=== PATIENT | female | born 1980 | race Hispanic/Latino ===

== ENCOUNTER 2016-11-29 00:18 | Emergency (ER) | payer OTHER ==
[~2016-11-29] VITALS: Ht 152.4 cm; Wt 59.1 kg
[2016-11-29 01:51] LABS: ADD MIUA? NO; BILIRUBIN NEGATIVE; BLOOD NEGATIVE; COLOR YELLOW ((YELLOW)); GLUCOSE (STRIP) NEGATIVE; KETONES TRACE; LEUKOCYTES NEGATIVE; NITRITE NEGATIVE; PH, URINE 6.5 (5-8); PROTEIN (STRIP) TRACE; SPECIFIC GRAVITY 1.031 (1.000-1.030); UCUL ADDED? NO
[2016-11-29] MEDS ORDERED: FLEXERIL10 MG PO (02:30)
[2016-11-29] MEDS ORDERED: PERCOCET 5/31 TABLET PO (02:30)
[2016-11-29] MEDS ORDERED: MEDROL DOSEPAK4 MG PO (02:30)
[2016-11-29 02:43] VITALS: BP 97/66
== END 2016-11-29 02:50 | disposition home or self-care (01) ==
LOC: RME 00:18 → EME 00:18 → RME 02:50
PROVIDERS: Physician Assistant
DX: M54.42 Lumbago with sciatica, left side (principal); J45.909 Unspecified asthma, uncomplicated; L98.9 Disorder of the skin and subcutaneous tissue, unspecified
CPT/HCPCS: 73502; 81003; 99281; 99284

== ENCOUNTER 2017-01-16 03:21 | Emergency (ER) | payer OTHER ==
[~2017-01-16] VITALS: Ht 165.1 cm; Wt 56.5 kg
[~2017-01-16 03:21] MED LIST: FLEXERIL10 MG PO; MEDROL DOSEPAK4 MG PO; PERCOCET 5/31 TABLET PO
[2017-01-16] MEDS ORDERED: PREDNISONE20 MG PO (04:33)
[2017-01-16 04:45] VITALS: BP 100/71
== END 2017-01-16 04:45 | disposition home or self-care (01) ==
LOC: EME 03:21
DX: J20.9 Acute bronchitis, unspecified (principal); J45.901 Unspecified asthma with (acute) exacerbation
CPT/HCPCS: 71020; 94640; 99281; 99284; J7512

== ENCOUNTER 2017-03-15 07:48 | Emergency (ER) | payer OTHER ==
[~2017-03-15] VITALS: Ht 152.4 cm; Wt 58.2 kg
[~2017-03-15 07:48] MED LIST changes: +PREDNISONE20 MG PO
[2017-03-15] MEDS ORDERED: TESSALON PERLE100 MG PO (10:00)
[2017-03-15 10:33] VITALS: BP 116/86
== END 2017-03-15 10:34 | disposition home or self-care (01) ==
LOC: EME 07:48
DX: J45.909 Unspecified asthma, uncomplicated (principal); R06.02 Shortness of breath; R05 Cough
CPT/HCPCS: 71020; 99281; 99284

== ENCOUNTER 2017-07-27 21:19 | Emergency (ER) | payer OTHER ==
[~2017-07-27] VITALS: Ht 152.4 cm; Wt 60.1 kg
[~2017-07-27 21:19] MED LIST changes: +TESSALON PERLE100 MG PO
[2017-07-27 22:36] LABS: HEMATOCRIT 40.9 % (36.0-46.0); MCH 27.1 PG (29.0-34.0); MCHC 32.8 G/DL (30.0-36.0); MCV 82.8 FL (83-99); PLATELET COUNT 387 K/uL (156-360); RBC DIS.WIDTH-CV 13.1 % (11.8-14.6); RBC DIS.WIDTH-SD 39.3 % (39-53); RED BLOOD COUNT 4.94 M/uL (3.80-5.20); WHITE BLOOD COUNT 9.5 K/uL (4.1-10.2)
[2017-07-27 22:45] LABS: CHLORIDE 107 mEq/L (99-109); POTASSIUM 3.7 mEq/L (3.7-5.4); SODIUM 139 mEq/L (136-147)
[2017-07-27 22:47] LABS: GLUCOSE 101 mg/dL (70-99)
[2017-07-27 22:49] LABS: ANION GAP 6 MEQ/L (2-14); TOTAL BILIRUBIN 0.6 mg/dL (0.0-1.0)
[2017-07-27 22:51] LABS: ADD MIUA? YES; BILIRUBIN NEGATIVE; BLOOD SMALL; COLOR YELLOW ((YELLOW)); GLUCOSE (STRIP) NEGATIVE; KETONES NEGATIVE; LEUKOCYTES NEGATIVE; NITRITE NEGATIVE; PROTEIN (STRIP) 30; SPECIFIC GRAVITY 1.025 (1.000-1.030); UROBILINOGEN 0.2 MG/DL (0.2-1.0)
[2017-07-27 22:51] LABS: ALKALINE PHOSPHATASE 72 IU/L (3-129); GFR ESTIMATE (CALCULATED) > 59 mL/min/
[2017-07-27 22:52] LABS: UREA NITROGEN (BUN) 13 mg/dL (9-23)
[2017-07-27 22:56] LABS: BACTERIA NONE SEEN /HPF; EPITHELIAL CELLS RARE /HPF; MUCUS NONE SEEN /LPF; UCUL ADDED? NO; WHITE BLOOD CELLS 0-5 /HPF (0-5)
[2017-07-27 23:04] LABS: QUANTITATIVE HCG < 4.0 MIU/ML
[2017-07-27] MEDS ORDERED: NAPROSYN500 MG PO (23:29)
[2017-07-27 23:46] VITALS: BP 112/74
== END 2017-07-27 23:47 | disposition home or self-care (01) ==
LOC: EME 21:19
DX: N93.9 Abnormal uterine and vaginal bleeding, unspecified (principal); J45.909 Unspecified asthma, uncomplicated; Z98.51 Tubal ligation status
CPT/HCPCS: 80053; 81003; 84702; 85027; 86850; 86900; 86901; 99281; 99284; J1885

== ENCOUNTER 2018-05-07 14:27 | Emergency (ER) | payer OTHER, BC ==
[~2018-05-07] VITALS: Ht 152.4 cm; Wt 61.2 kg
[~2018-05-07 14:27] MED LIST changes: +NAPROSYN500 MG PO; +PREDNISONE50 MG PO; +PROVENTIL,2.5 MG/0.5 IH
[2018-05-07 15:52] LABS: APPEARANCE CLEAR ((CLEAR)); BILIRUBIN NEGATIVE; BLOOD NEGATIVE; COLOR YELLOW ((YELLOW)); GLUCOSE (STRIP) NEGATIVE; KETONES NEGATIVE; LEUKOCYTES NEGATIVE; NITRITE NEGATIVE; PROTEIN (STRIP) NEGATIVE; SPECIFIC GRAVITY 1.019 (1.000-1.030); UCUL ADDED? NO; UROBILINOGEN 0.2 MG/DL (0.2-1.0)
[2018-05-07] MEDS ORDERED: FLEXERIL10 MG PO (16:40)
[2018-05-07] MEDS ORDERED: PREDNISONE20 MG PO (16:40)
[2018-05-07] MEDS ORDERED: MOTRIN600 MG PO (16:40)
[2018-05-07 17:00] VITALS: BP 103/71
== END 2018-05-07 17:12 | disposition home or self-care (01) ==
LOC: EME 14:27
PROVIDERS: Nurse Practitioner Family
DX: S16.1XXA Strain of muscle, fascia and tendon at neck level, initial encounter (principal); S66.911A Strain of unspecified muscle, fascia and tendon at wrist and hand level, right hand, initial encounter; V43.52XA Car driver injured in collision with other type car in traffic accident, initial encounter; Y92.410 Unspecified street and highway as the place of occurrence of the external cause; M25.561 Pain in right knee; M54.5 Low back pain; G89.29 Other chronic pain; J45.909 Unspecified asthma, uncomplicated
CPT/HCPCS: 72040; 72100; 73110; 73564; 81003; 99281; 99284; J1885; J7512